=== PATIENT | male | born 1985 | race African-American/Black ===

== ENCOUNTER 2017-02-25 18:03 | Emergency (ER) | payer SELFPAY ==
[~2017-02-25] VITALS: Ht 182.9 cm; Wt 62.3 kg
[~2017-02-25 18:03] MED LIST: ZITH250T PO
[2017-02-25 18:04] VITALS: BP 119/81; PULSE 96; RESP 18; TEMP 99.2; O2SAT 97
--- NOTE | 2017-02-25 18:43 | PD ---
HPI Chief Complaint: Cold / Flu Symptoms Time Seen by Provider: 18:31 Travel History International Travel<30 days: No Contact w/Intl Traveler<30days: No Traveled to known affect area: No History of Present Illness HPI 31-year-old male presents to the emergency room for evaluation of low grade fevers, nonproductive cough, sore throat, and body aches that started last night. He has not actually taken his temperature. Cough is moderate. States he has pleuritic chest pain and sore throat made worse by coughing. Sore throat is otherwise not severe. No chronic medical conditions or daily medications. 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 ) Respiratory: No Tetanus Vaccination: > 5 Years Influenza Vaccination: No Social History Alcohol Use: Yes (OCCASIONALLY) Tobacco Use: Yes (1 PK/DAY) Substance Use: Yes (MARIJUANA) Allergies-Medications (Allergen,Severity, Reaction): Coded Allergies: No Known Allergies (Verified Adverse Reaction, Unknown, 02/25/17) Reported Meds & Prescriptions Reported Meds & Active Scripts Active No Active Prescriptions or Reported Medications Review of Systems Except as stated in HPI: all other systems reviewed are Neg Physical Exam Narrative GENERAL: Well-nourished, well-developed male in no acute distress. Afebrile. Ambulatory. SKIN: Focused skin assessment warm/dry. HEAD: Normocephalic. EYES: No scleral icterus. No injection or drainage. ENT: Mucosa pink and moist. Moderate erythema without edema or exudates. No uvular edema. No uvular, palatal, or tonsillar deviation. Airway patent. Nasal turbinates appear normal without nasal blood, purulent drainage or septal hematoma. EARS: Bilateral pinnae and external canals appear within normal limits. Bilateral tympanic membranes without erythema, dullness or perforation. NECK: Supple, trachea midline. No JVD or lymphadenopathy. CARDIOVASCULAR: Regular rate and rhythm without murmurs, gallops, or rubs. RESPIRATORY: Breath sounds equal bilaterally. No accessory muscle use. No crackles, rales, wheezes, or rhonchi. Data Data Last Documented VS Vital Signs Date Time Temp Pulse Resp B/P (MAP) Pulse Ox O2 Delivery O2 Flow Rate FiO2 02/25/17 18:04 99.2 96 18 119/81 (94) 97 Room Air Orders Orders Influenzae A/B Antigen (02/25/17 18:34) Ed Discharge Order (02/25/17 19:20) [facility] Medical Decision Making Medical Screen Exam Complete: Yes Emergency Medical Condition: Yes Medical Record Reviewed: Yes Differential Diagnosis Flu, pneumonia, upper respiratory infection, strep Narrative Course 31-year-old male presents to the emergency room for evaluation of cough and cold symptoms that started last night. He has had low-grade fevers and night sweats but not actually taken her temperature. Physical exam is reassuring. Patient is resting currently. Lung sounds clear and equal bilaterally. Coughing usually. Mild erythema of the pharynx without edema or exudates. Rapid influenza is negative. Patient likely has upper respiratory infection. Discharged with instructions to follow up with PCP or return for worsening symptoms. He understands and agrees to plan. Diagnosis Primary Impression: Upper respiratory infection Qualified Codes: J00 - Acute nasopharyngitis [common cold] Referrals: Primary Care Physician Additional Instructions: Rest and drink plenty of fluids. [id number] cough and cold medications as directed, as needed for symptoms. Take ibuprofen with food as directed, as needed for pain. Follow-up with a primary care physician. Return to the emergency room for worsening symptoms. Scripts No Active Prescriptions or Reported Meds Disposition: 01 DISCHARGE HOME Condition: Stable Margi Bran Feb 25, 2017 18:43
== END 2017-02-25 19:36 | disposition home or self-care (01) ==
LOC: NEPK 18:03
DX: J00 Acute nasopharyngitis [common cold] (principal); G80.9 Cerebral palsy, unspecified; F17.200 Nicotine dependence, unspecified, uncomplicated; F12.90 Cannabis use, unspecified, uncomplicated
CPT/HCPCS: 87804; 99282